=== PATIENT | female | born 1980 | race African-American/Black ===

== ENCOUNTER 2018-12-09 18:34 | Emergency (ER) | payer MEDICAID ==
[~2018-12-09] VITALS: Ht 188 cm; Wt 91.0 kg
[2018-12-09] MEDS ORDERED: LIDOCAINE HCL 2% JELLY 5ML TOP ONE (20:45)
[2018-12-09] MEDS ORDERED: IBUPROFEN 600MG TABLET PO ONE (20:45)
[2018-12-09 22:07] VITALS: BP 131/72
== END 2018-12-09 22:07 | disposition home or self-care (01) ==
LOC: ER 18:34
DX: S60.447A External constriction of left little finger, initial encounter (principal); S60.446A External constriction of right little finger, initial encounter; R03.0 Elevated blood-pressure reading, without diagnosis of hypertension; W49.04XA Ring or other jewelry causing external constriction, initial encounter; Y93.89 Activity, other specified; Y92.89 Other specified places as the place of occurrence of the external cause; Y99.8 Other external cause status
CPT/HCPCS: 73140; 99283; 99284